=== PATIENT | male | born 1950 | race Caucasian/White ===

== ENCOUNTER 2022-03-08 07:10 | Observation (INO) | payer MEDICARE, OTHER ==
[2022-03-07 13:09] LABS: BASOPHILS % 0.5 % (0.0-1.0); EOSINOPHILS # (AUTO) 0.1 (0.0-0.4); EOSINOPHILS % 2.4 % (0.0-6.0); HEMATOCRIT 40.8 % (38.2-49.6); HEMOGLOBIN 13.4 g/dL (14.0-18.0); LYMPHOCYTES # (AUTO) 1.9 (1.0-3.2); LYMPHOCYTES % 32.3 % (18.0-39.1); MEAN CORPUSCULAR HEMOGLOBIN 32.2 pg (28-32); MEAN CORPUSCULAR HGB CONC 32.8 g/dL (31-35); MEAN CORPUSCULAR VOLUME 98.1 fL (81-99); MONOCYTES # (AUTO) 0.6 (0.2-0.8); MONOCYTES % 10.6 % (4.4-11.3); NEUTROPHILS # (AUTO) 3.1 (2.1-6.9); NEUTROPHILS % 53.9 % (38.7-80.0); PLATELET COUNT 219 x10e3/uL (140-360); RED BLOOD COUNT 4.16 x10e6/uL (4.3-5.7); RED CELL DISTRIBUTION WIDTH 12.4 % (11.7-14.4)
[2022-03-07 13:28] LABS: INR 1.02; PROTHROMBIN TIME 14.3 seconds (11.9-14.5)
[2022-03-07 13:29] LABS: PARTIAL THROMBOPLASTIN TIME 27.9 seconds (23.8-35.5)
[2022-03-07 13:32] LABS: ANION GAP 13.1 mmol/L (8-16); CALCIUM 9.2 mg/dL (8.4-10.2); CREATININE, SERUM 1.03 mg/dL (0.72-1.25); POTASSIUM 4.1 mmol/L (3.5-5.1)
[2022-03-08] VITALS (9 sets, daily range): BP systolic 109–132; BP diastolic 70–80
[~2022-03-08] VITALS: Ht 185.4 cm; Wt 104.3 kg
[~2022-03-08 07:10] MED LIST: ALENDRONATE SOD70 MG PO; AMLODIPINE BESYL5 MG PO; CLONIDINE HCL0.1 MG PO; CLOPIDOGREL75 MG PO; CRESTOR10 MG PO; IBUPROFEN200 MG PO; LOSARTAN POTAS100 MG PO; MULTI-VITAMIN1 EACH PO; NITROGLYCERIN0.4 MG SL; THROMBIN FOR SOLN 5,000 UNIT VIAL ONE; VIAGRA100 MG PO; VITAMIN D3125 MCG PO; Vancomycin IV 1 GM VIAL ONE; ZETIA10 MG PO
[2022-03-08] MEDS ORDERED: HEPARIN SOD/SOD CHLORIDE 1,000 ML ONE (08:50)
[2022-03-08] MEDS ORDERED: HYDROCODON-ACE1 EA12 PO (10:38)
[2022-03-08] MEDS ORDERED: ONDANSETRON ODT4 MG PO (10:44)
[2022-03-08] MEDS ORDERED: CLONIDINE HCL 0.1 MG TAB PO PRN (10:45)
[2022-03-08] MEDS ORDERED: NITROGLYCERIN 0.4 MG SUBL SL PRN (10:45)
[2022-03-08] MEDS ORDERED: ONDANSETRON HCL INJ 2MG/ML 2ML 2 MG/ML VIAL IV PRN (10:45)
[2022-03-08] MEDS ORDERED: CEPACOL SORE THROAT LOZENGES PO PRN (10:45)
[2022-03-08] MEDS ORDERED: MAGNESIUM/ALUMINUM/SIMETHICONE 30 ML UDC PO PRN (10:45)
[2022-03-08] MEDS ORDERED: Morphine 10mg syringe 10 MG/ML INJ IM PRN (10:45)
[2022-03-08] MEDS ORDERED: HYDROMORPHONE 2MG/ML 2 MG/ML ML IV PRN (10:45)
[2022-03-08] MEDS ORDERED: ACETAMINOPHEN 325 MG TAB PO PRN (10:45)
[2022-03-08] MEDS ORDERED: ZOLPIDEM TARTRATE 5 MG TAB PO PRN (10:45)
[2022-03-08] MEDS ORDERED: PROMETHAZINE HCL (IM) 25 MG/ML VIAL IM PRN (10:45)
[2022-03-08] MEDS ORDERED: CARISOPRODOL 350 MG TAB PO PRN (10:45)
[2022-03-08] MEDS ORDERED: SILDENAFIL CITRATE PO SCH (10:45)
[2022-03-08] MEDS: LACTATED RINGER'S 1,000 ML IV SCH ×2 (12:27→19:05)
[2022-03-08] MEDS ORDERED: SEVOFLURANE INHAL SOLN 250 ML PEN BTL ONE (12:33)
[2022-03-08] MEDS ORDERED: EPHEDRINE SULFATE INJ 50 MG/ML VIAL ONE (12:33)
[2022-03-08] MEDS ORDERED: DEXAMETHASONE SOD PHOS INJ 4 MG/ML SDV ONE (12:33)
[2022-03-08] MEDS ORDERED: ONDANSETRON HCL INJ 2MG/ML 2ML 2 MG/ML VIAL ONE (12:33)
[2022-03-08] MEDS ORDERED: PROPOFOL IV EMULSION 10 MG/ML 20 ML VIAL ONE (12:33)
[2022-03-08] MEDS ORDERED: POVIDONE IODINE 0.05% 0.05 % ML PO ONE (12:33)
[2022-03-08] MEDS ORDERED: ROCURONIUM BROMIDE 10 MG/ML 5ML VIAL IV ONE (12:33)
[2022-03-08] MEDS ORDERED: CLONIDINE HCL 0.1 MG TAB PO SCH (13:00)
[2022-03-08] MEDS ORDERED: MIDAZOLAM HCL 2 MG/2 ML VIAL ONE (13:04)
[2022-03-08] MEDS ORDERED: FENTANYL CITRATE/PF 100MCG/2 ML INJ ONE (13:04)
[2022-03-08] MEDS ORDERED: SODIUM CHLORIDE 0.9% 100 ML ONE (13:15)
[2022-03-08] MEDS: OXYCODONE/ACETAMINOPHEN 5-325 1 EACH TABLET PO PRN ×2 (13:19→21:55)
[2022-03-08] MEDS ORDERED: CLOPIDOGREL BISULFATE 75 MG TAB PO SCH (21:00)
[2022-03-08] MEDS ORDERED: AMLODIPINE BESYLATE 5 MG TAB PO SCH (21:00)
[2022-03-08] MEDS ORDERED: EZETIMIBE 10 MG TAB PO SCH (21:00)
[2022-03-08] MEDS ORDERED: SIMVASTATIN 40 MG TAB PO SCH (21:00)
[2022-03-09] VITALS: BP 122/86
[2022-03-09 03:29] VITALS: BP 134/80
[2022-03-09 08:35] VITALS: BP 119/74
[2022-03-09] MEDS ORDERED: MULTIVITAMINS/MINERALS TAB PO SCH (09:00)
[2022-03-09] MEDS ORDERED: LOSARTAN POTASSIUM 100 MG TAB PO SCH (09:00)
== END 2022-03-09 10:04 | disposition home or self-care (01) ==
LOC: OR 07:10 → PACU V 10:35 → MED/SURG 11:53
PROVIDERS: ADMIT Neurological Surgery; ATTEND Neurological Surgery
DX: M48.062 Spinal stenosis, lumbar region with neurogenic claudication (principal); M51.16 Intervertebral disc disorders with radiculopathy, lumbar region; Z95.1 Presence of aortocoronary bypass graft; I71.4 Abdominal aortic aneurysm, without rupture; E66.9 Obesity, unspecified; Z68.30 Body mass index [BMI] 30.0-30.9, adult; Z72.89 Other problems related to lifestyle; J44.9 Chronic obstructive pulmonary disease, unspecified; Z87.891 Personal history of nicotine dependence; I73.9 Peripheral vascular disease, unspecified; E78.5 Hyperlipidemia, unspecified; I25.10 Atherosclerotic heart disease of native coronary artery without angina pectoris; I10 Essential (primary) hypertension; Z01.810 Encounter for preprocedural cardiovascular examination; Z01.812 Encounter for preprocedural laboratory examination; Z01.818 Encounter for other preprocedural examination; Z20.822 Contact with and (suspected) exposure to COVID-19
CPT/HCPCS: 0223U; 36415; 63047; 63048; 71046; 72020; 80048; 85025; 85610; 85730; 86850; 86900; 88304; 88311; 93005; G0378 ×2; J0690 ×2; J1100; J1170; J2250; J2405; J2704; J3010; J3370; J7050; J7121